=== PATIENT | female | born 1955 | race Caucasian/White ===

== ENCOUNTER 2016-07-26 16:27 | Emergency (ER) | payer MEDICARE, MEDICAID ==
[2016-07-26] MEDS ORDERED: Ondansetron ODT TAB* 4 MG PO ONE ×2 (18:18→19:27)
[2016-07-26 19:48] VITALS: BP 173/75
[2016-07-27 12:51] LABS: Urine Bacteria Absent (Absent); Urine Bilirubin Negative (Negative); Urine Glucose Negative (Negative); Urine Nitrite Negative (Negative)
--- NOTE | 2016-07-27 20:00 | UC ---
Blu Matta Aidan, scribed for Sade Abad MD on 07/26/16 at 1840 . FLU HPI - HPI Summary HPI Summary: 61 y/o female presents to the Urgent Care with a complaint of acute, constant, moderate, influenza-like symptoms that began yesterday afternoon. Associated symptoms include decreased oral intake, frequent episodes of diarrhea, chills, abdominal tenderness, a mild cough, diffuse body aches, nasal congestion, and a bloody nose last night. Pt denies any vomiting or sore throat. She is a Type II diabetic on insulin who last had a dose at 1900 yesterday. She takes 1 dose per day. The last time she ate was noon today. 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 Negative: Negative - diffuse body aches, chills, abdominal tenderness, decreased oral intake, nasal congestion, bloody nose last night Related Hx: Smoking - former - Risk Factors Influenza Risk Factors: Chronic Medical or Immunosuppresive Condition - DM - Allergy/Home Medications Allergies/Adverse Reactions: Allergies Allergy/AdvReac Type Severity Reaction Status Date / Time Aspirin Allergy Mild Hives Verified 07/26/16 16:59 Cephalexin [From Keflex] Allergy Mild Hives Verified 07/26/16 16:59 Ibuprofen [From Motrin] Allergy Mild Hives Verified 07/26/16 16:59 Naproxen [From Aleve] Allergy Mild Hives Verified 07/26/16 16:59 Pregabalin [From Lyrica] Allergy Mild Hives - Verified 07/26/16 16:59 100 MG ONLY, CAN AND DO TAKE 50 MG Amoxicillin [From Augmentin] Allergy Hives Verified 07/26/16 16:59 Clavulanic Acid Allergy Hives Verified 07/26/16 16:59 [From Augmentin] Erythromycin Allergy SOB , HIVES Verified 07/26/16 16:59 Nitrofurantoin Allergy Unknown Verified 07/26/16 16:59 [From Macrodantin] Reaction Details Sulfa Drugs Allergy Hives Verified 07/26/16 16:59 Triamcinolone [From Nasacort] Allergy Unknown Verified 07/26/16 16:59 Reaction Details CARROTS, CELERY, APPLES Allergy Mild Hives Uncoded 07/26/16 16:59 DIET SWEETNERS Allergy TONGUE Uncoded 07/26/16 16:59 NUMB, HEADACHE PMH/Surg Hx/FS Hx/Imm Hx Endocrine History Of: Reports: Diabetes, Dyslipidemia Cardiovascular History Of: Reports: Hypertension Respiratory History Of: Reports: COPD, Asthma GI/ History Of: Reports: Gastroesophageal Reflux Neurological History Of: Reports: Migraine - 3 X A WEEK Psychological History Of: Reports: Anxiety - HX, Depression - HX Cancer History Of: Denies: Lung Cancer, Colorectal Cancer, Breast Cancer, Prostate Cancer, Cervical Cancer Other History Of: Negative For: HIV, Hepatitis B, Hepatitis C - Surgical History Surgical History: Yes Surgery Procedure, Year, and Place: BILATERAL TUBAL LIGATION,. CHOLECYSTECTOMY. APPENDECTOMY. BACK SURGURY X 6 (with implant), [facility]. LEFT HIP IMPLANT. RIGHT HAND CYSTECTOMY. HYSTERECTOMY, [facility] - Family History Known Family History: Positive: Cardiac Disease, Hypertension, Diabetes, Other - charcot tracey tooth - Social History Occupation: Disabled Lives: Alone Alcohol Use: None Substance Use Type: None, Prescribed Smoking Status (MU): Former Smoker Type: Cigarettes Amount Used/How Often: 1 1/2 PPD Length of Time of Smoking/Using Tobacco: 5 Years When Did the Patient Quit Smoking/Using Tobacco: 2010 Household Exposure Type: Cigarettes - Immunization History Most Recent Influenza Vaccination: 2013 Review of Systems Constitutional: Chills, Fatigue, Other - decreased oral intake Skin: Negative Eyes: Negative ENT: Epistaxis - 1x last night, resolved spontaneously, Other - nasal congestion Respiratory: Cough Cardiovascular: Negative Gastrointestinal: Abdominal Pain, Diarrhea Genitourinary: Negative Motor: Negative Neurovascular: Negative Musculoskeletal: Arthralgia - diffuse body aches Neurological: Negative Psychological: Negative All Other Systems Reviewed And Are Negative: Yes Physical Exam Triage Information Reviewed: Yes Appearance: Well-Appearing, Well-Nourished, Pain Distress Vital Signs: Initial Vital Signs Temp 98.0 F 07/26/16 16:56 Pulse 96 07/26/16 16:56 Resp 20 07/26/16 16:56 BP 188/96 07/26/16 16:56 Pulse Ox 98 07/26/16 16:56 Vital Signs Reviewed: Yes Eyes: Positive: Conjunctiva Clear ENT: Positive: Pharynx normal, TMs normal. Negative: Hearing grossly normal Neck: Positive: Supple, Nontender, No Lymphadenopathy Respiratory: Positive: Lungs clear, Normal breath sounds, No respiratory distress Cardiovascular: Positive: RRR, No Murmur, Pulses Normal, Brisk Capillary Refill Abdomen Description: Positive: No Organomegaly, Soft. Negative: Nontender - mild diffuse tenderness, CVA Tenderness (R), CVA Tenderness (L), Distended, Guarding, Hepatomegaly, McBurney's Point Tenderness, Peritoneal Signs, Pulsatile Mass, Splenomegaly Bowel Sounds: Positive: Hypoactive Musculoskeletal: Positive: Strength Intact, ROM Intact Neurological: Positive: Alert, Muscle Tone Normal Psychological Exam: Normal Skin Exam: Other - ecchymoses on abdomen from sites of insulin injections Re-Evaluation - Re-Evaluation First Eval Re-Evaluation Time: 19:23 - after zofran, pt retentive of juice and crackers , feels better Change: Improved Flu Course/Dx - Course Course Of Treatment: glu 107 UA 75 wbcs, +protein; influenza A and B neg. Await urine culture - Differential Dx/Diagnosis Differential Diagnosis/HQI/PQRI: Influenza, Pneumonia, Other - gastroenteritis, Dm in poor control, UTI Provider Diagnoses: Gastroenteritis Discharge - Discharge Plan Condition: Stable Disposition: HOME Prescriptions: Ondansetron ODT TAB* [Zofran Odt TAB*] 4 mg PO Q8H PRN #10 tab.odt PRN Reason: Nausea Patient Education Materials: Gastroenteritis (ED) Referrals: Desean Moreno MD [Primary Care Provider] - Additional Instructions: We have dispensed one zofran 4mg ODT that you may take at 0430am if you are still having stomach upset. Go to the emergency room if you have any new or worsening symptoms. The documentation as recorded by the Blu thomason Aidan accurately reflects the service I personally performed and the decisions made by , Sade Abad MD.
== END 2016-07-26 19:46 | disposition home or self-care (01) ==
LOC: UCEAST 16:27
DX: K52.9 Noninfective gastroenteritis and colitis, unspecified (principal); R10.819 Abdominal tenderness, unspecified site; Z88.6 Allergy status to analgesic agent; Z88.1 Allergy status to other antibiotic agents; Z88.0 Allergy status to penicillin; Z88.2 Allergy status to sulfonamides; Z88.8 Allergy status to other drugs, medicaments and biological substances; E11.9 Type 2 diabetes mellitus without complications; Z79.4 Long term (current) use of insulin; Z90.49 Acquired absence of other specified parts of digestive tract; Z87.891 Personal history of nicotine dependence
CPT/HCPCS: 81002; 81003; 81015; 87077; 87086; 87502; 99213; A9270-GY; G0463

== ENCOUNTER 2017-01-11 13:14 | Emergency (ER) | payer MEDICARE, MEDICAID ==
--- NOTE | 2017-01-11 14:36 | UC ---
Shoulder Pain HPI - HPI Summary HPI Summary: 61 y/o female w/ PMHX HTN, DM type II, dyslipidemia and multiple back surgeries and hip replacement on pain medications presents to the urgent care c/o LF shoulder pain for the past week after flipping a mattress. Pt states her pain is 6/10m, specially w/ movement. She has been taking her pain medications. Pt states denies fever, SOB, chest pain, abdominal pain, N/V/D. Pt has not other complains - History of Current Complaint Chief Complaint: UCUpperExtremity Stated Complaint: SHOULDER PAIN Time Seen by Provider: 01/11/17 14:16 Hx Obtained From: Patient Hx Last Menstrual Period: NA ?: No Onset/Duration: Gradual Onset, Lasting Days, Still Present Timing: Constant Severity Initially: Moderate Severity Currently: Moderate Location Of Pain: Is Discrete @ - LF shoulder Pain Intensity: 6 Pain Scale Used: 0-10 Numeric Character: Sharp Aggravating Factor(s): Movement, Lifting Alleviating Factor(s): Rest Associated Signs And Symptoms: Positive: Negative. Negative: Swelling, Redness , Fever, Weakness, Numbness/Tingling - Risk Factors Non-Orthopedic Risk Factor: Negative DVT Risk Factors: Negative Septic Arthritis Risk Factor: Negative - Allergies/Home Medications Allergies/Adverse Reactions: Allergies Allergy/AdvReac Type Severity Reaction Status Date / Time Aspirin Allergy Mild Hives Verified 07/26/16 16:59 Cephalexin [From Keflex] Allergy Mild Hives Verified 07/26/16 16:59 Ibuprofen [From Motrin] Allergy Mild Hives Verified 07/26/16 16:59 Naproxen [From Aleve] Allergy Mild Hives Verified 07/26/16 16:59 Pregabalin [From Lyrica] Allergy Mild Hives - Verified 07/26/16 16:59 100 MG ONLY, CAN AND DO TAKE 50 MG Amoxicillin [From Augmentin] Allergy Hives Verified 01/11/17 13:23 Clavulanic Acid Allergy Hives Verified 07/26/16 16:59 [From Augmentin] Erythromycin Allergy SOB , HIVES Verified 07/26/16 16:59 Nitrofurantoin Allergy Unknown Verified 07/26/16 16:59 [From Macrodantin] Reaction Details Sulfa Drugs Allergy Hives Verified 07/26/16 16:59 Triamcinolone [From Nasacort] Allergy Unknown Verified 07/26/16 16:59 Reaction Details CARROTS, CELERY, APPLES Allergy Mild Hives Uncoded 07/26/16 16:59 DIET SWEETNERS Allergy TONGUE Uncoded 07/26/16 16:59 NUMB, HEADACHE PMH/Surg Hx/FS Hx/Imm Hx Previously Healthy: Yes Endocrine History: Diabetes, Dyslipidemia Cardiovascular History: Hypertension Other GI/ History: constipation Other History Of: Negative For: HIV, Hepatitis B, Hepatitis C - Surgical History Surgical History: Yes Surgery Procedure, Year, and Place: BILATERAL TUBAL LIGATION,. CHOLECYSTECTOMY. APPENDECTOMY. BACK SURGURY X 6 (with implant), [place]. LEFT HIP IMPLANT. RIGHT HAND CYSTECTOMY. HYSTERECTOMY, [facility] - Family History Known Family History: Positive: Cardiac Disease, Hypertension, Diabetes, Other - charcot tracey tooth - Social History Occupation: Disabled Lives: With Family Alcohol Use: None Substance Use Type: None, Prescribed Smoking Status (MU): Former Smoker Type: Cigarettes Amount Used/How Often: 1 1/2 PPD Length of Time of Smoking/Using Tobacco: 5 Years When Did the Patient Quit Smoking/Using Tobacco: 2010 Household Exposure Type: Cigarettes - Immunization History Most Recent Influenza Vaccination: 2013 Review of Systems Constitutional: Negative Skin: Negative Eyes: Negative ENT: Negative Respiratory: Negative Cardiovascular: Negative Gastrointestinal: Negative Genitourinary: Negative Motor: Negative Neurovascular: Negative Musculoskeletal: Other: - LF shoulder pain Neurological: Negative Psychological: Negative All Other Systems Reviewed And Are Negative: Yes Physical Exam Triage Information Reviewed: Yes Appearance: Well-Appearing, No Pain Distress, Well-Nourished, Obese - morbidly obese Vital Signs: Initial Vital Signs Temp 97.6 F 01/11/17 13:20 Pulse 83 01/11/17 13:20 Resp 16 01/11/17 13:20 BP 154/83 01/11/17 13:20 Pulse Ox 97 01/11/17 13:20 Vital Signs Reviewed: Yes Eye Exam: Normal Eyes: Positive: Conjunctiva Clear - PERRLA, EOMI, fundi grossly normal ENT Exam: Normal ENT: Positive: Normal ENT inspection, Hearing grossly normal, Pharynx normal, TMs normal, Other: - B/L earphones Dental Exam: Normal Neck exam: Normal Neck: Positive: Supple, Nontender, No Lymphadenopathy Respiratory Exam: Normal Respiratory: Positive: Chest non-tender, Lungs clear, Normal breath sounds Cardiovascular Exam: Normal Cardiovascular: Positive: RRR, No Murmur, Pulses Normal Abdominal Exam: Normal Abdomen Description: Positive: Nontender, No Organomegaly, Soft. Negative: CVA Tenderness (R), CVA Tenderness (L) Bowel Sounds: Positive: Present Musculoskeletal: Positive: Strength Intact, No Edema, ROM Limited @ - LF shoulder w/ limited ROM due to pain, point tenderness at the acromoclavicular joint w/o swelling or erythema. Positive sensation and capillary refill of the LF upper extremity, positive reflexes and pulses. Neurological Exam: Normal Psychological Exam: Normal Skin Exam: Normal Shoulder Course/Dx - Course Course Of Treatment: 61 y/o female w/ PMHX HTN, DM type II, dyslipidemia and multiple back surgeries and hip replacement on pain medications presents to the urgent care c/o LF shoulder pain for the past week after flipping a mattress. Pt states her pain is 6/10m, specially w/ movement. She has been taking her pain medications. Pt states denies fever, SOB, chest pain, abdominal pain, N/V/ D.HX obtained. LF shoulder X-ray ordered, Result: normal radiograph of LF shoulder. Pt's LF shouldr immobilized w/ a shoulder sling and advised RICE and take tylenol q4-6hrs and continue taking her pain medication. Given referral for PT. Advised if no improvement of symptoms to f/u with her PCP for further images and treatment. Pt understood and agreed. -Pt w/ PMHX of HTN and BP today elevated. Pt has taking her BP meds. Advised to decrease salt in her diet , monitor her BP and f/u with her PCP for further management. PT understood and agreed. - Differential Dx/Diagnosis Differential Diagnosis/HQI/PQRI: Bursitis, Contusion, Dislocation, Fracture ( Closed), Rotator Cuff Injury, Sprain, Strain, Tendonitis Provider Diagnoses: 1-Left shoulder pain. 2-Uncontrolled HTN Discharge - Discharge Plan Condition: Stable Disposition: HOME Patient Education Materials: Shoulder Sprain (ED), Low Sodium Diet (ED) Referrals: Desean Moreno MD [Primary Care Provider] - 1 Week Additional Instructions: 1-PLese continue taking your medication for pain, keep your shoulder immobilized , apply ice and rest. F/u with Physical Therapy for further evaluation and treatment. If symptoms do not improve please f/u with your PCP for further management. 2-Your BP is elevated today, please decrease salt in your diet and continue monitor your BP if continues to be elevated, please f/u with your PCP
--- NOTE | 2017-01-11 15:07 | RAD ---
INDICATION: Anterior left shoulder pain while flipping her mattress COMPARISON: None. TECHNIQUE: 4 views of the left shoulder were obtained. FINDINGS: The adequately corticated bones are in normal alignment. Joint spaces appear maintained. No fracture, dislocation or focal bony abnormality is seen. IMPRESSION: Normal radiograph of the left shoulder. If the patient's symptoms persist, follow-up imaging is recommended.
[2017-01-11 15:46] VITALS: BP 162/75
== END 2017-01-11 15:40 | disposition home or self-care (01) ==
LOC: UCEAST 13:14
DX: M25.512 Pain in left shoulder (principal); E11.9 Type 2 diabetes mellitus without complications; I10 Essential (primary) hypertension; E78.5 Hyperlipidemia, unspecified; Z88.6 Allergy status to analgesic agent; Z88.3 Allergy status to other anti-infective agents; Z88.2 Allergy status to sulfonamides; Z91.018 Allergy to other foods; K59.00 Constipation, unspecified; Z96.642 Presence of left artificial hip joint; Z87.891 Personal history of nicotine dependence
CPT/HCPCS: 99213; G0463

== ENCOUNTER 2017-02-07 19:42 | Emergency (ER) | payer MEDICARE, MEDICAID ==
[2017-02-07] MEDS ORDERED: DOXYcycline CAP(*) 100 MG PO ONE (20:25)
[2017-02-07 20:37] VITALS: BP 154/78
--- NOTE | 2017-02-07 20:43 | UC ---
Yair Matta Nikita, scribed for Jonathan Ackerman MD on 02/07/17 at 2028 . General HPI - HPI Summary HPI Summary: This patient is a 61 year old F presenting to [facility] with a chief complaint of ear pain and sinus congestion for two days. Pt reports she cant wear her glasses because they are too sore. The patient rates the pain 10/10 in severity. Symptoms aggravated by touching. Symptoms alleviated by nothing. Patient reports sore bilateral ears, cold a few days ago, fever, and cough. Patient denies sore throat. Pt doesnt know if her ears have any drainage. Pt reports similar episode many years ago, no surgeries with her ears, and no ear plants yet (scheduled for Apr.07). - History of Current Complaint Chief Complaint: UCEar Stated Complaint: EAR PAIN,SINUS CONGESTION Time Seen by Provider: 02/07/17 20:11 Hx Obtained From: Patient Hx Last Menstrual Period: NA Onset/Duration: Sudden Onset - 2 days, Lasting Days, Still Present Onset Severity: Severe Current Severity: Severe Pain Intensity: 10 Pain Location at: Bilateral ears and sinuses Aggravating: touching Alleviating: nothing Associated Signs & Symptoms: Positive: Other - Patient reports sore bilateral ears, cold a few days ago, fever, and cough. Patient denies sore throat. Pt doesnt know if her ears have any drainage. - Allergy/Home Medications Allergies/Adverse Reactions: Allergies Allergy/AdvReac Type Severity Reaction Status Date / Time Aspirin Allergy Mild Hives Verified 07/26/16 16:59 Cephalexin [From Keflex] Allergy Mild Hives Verified 07/26/16 16:59 Ibuprofen [From Motrin] Allergy Mild Hives Verified 07/26/16 16:59 Naproxen [From Aleve] Allergy Mild Hives Verified 07/26/16 16:59 Pregabalin [From Lyrica] Allergy Mild Hives - Verified 07/26/16 16:59 100 MG ONLY, CAN AND DO TAKE 50 MG Amoxicillin [From Augmentin] Allergy Hives Verified 01/11/17 13:23 Clavulanic Acid Allergy Hives Verified 07/26/16 16:59 [From Augmentin] Erythromycin Allergy SOB , HIVES Verified 07/26/16 16:59 Nitrofurantoin Allergy Unknown Verified 07/26/16 16:59 [From Macrodantin] Reaction Details Sulfa Drugs Allergy Hives Verified 07/26/16 16:59 Triamcinolone [From Nasacort] Allergy Unknown Verified 07/26/16 16:59 Reaction Details CARROTS, CELERY, APPLES Allergy Mild Hives Uncoded 07/26/16 16:59 DIET SWEETNERS Allergy TONGUE Uncoded 07/26/16 16:59 NUMB, HEADACHE PMH/Surg Hx/FS Hx/Imm Hx Other History Of: Negative For: HIV, Hepatitis B, Hepatitis C - Surgical History Surgical History: Yes Surgery Procedure, Year, and Place: BILATERAL TUBAL LIGATION,. CHOLECYSTECTOMY. APPENDECTOMY. BACK SURGURY X 6 (with implant), [place]. LEFT HIP IMPLANT. RIGHT HAND CYSTECTOMY. HYSTERECTOMY, [facility] - Family History Known Family History: Positive: Cardiac Disease, Hypertension, Diabetes, Other - charcot traecy tooth - Social History Alcohol Use: None Substance Use Type: None, Prescribed Smoking Status (MU): Former Smoker Type: Cigarettes Amount Used/How Often: 1 1/2 PPD Length of Time of Smoking/Using Tobacco: 5 Years When Did the Patient Quit Smoking/Using Tobacco: 2010 Household Exposure Type: Cigarettes - Immunization History Most Recent Influenza Vaccination: 2013 Review of Systems Constitutional: Fever ENT: Ear Ache - Sore bilateral ears, Other - negative: sore throat; pt is unsure of any ear drainage Respiratory: Cough, Other - Cold like symptoms All Other Systems Reviewed And Are Negative: Yes Physical Exam Triage Information Reviewed: Yes Vital Signs: Initial Vital Signs Temp 98.5 F 02/07/17 19:49 Pulse 86 02/07/17 19:49 Resp 16 02/07/17 19:49 BP 154/78 02/07/17 19:49 Pulse Ox 98 02/07/17 19:49 - Additional Comments The patient is in no acute distress. Pt is hard of hearing. HEENT: The pupils are equal and reactive. Tragel tenderness in her right ear. Erythema on her right ear canal. No mastoid tenderness. Left ear has more pronounced tragal tenderness and a more inflamed ear canal. The ear drums are normal. Both frontal and sinus are tender to percussion. Neck is supple. Respiratory: Lungs are clear. Cardiovascular: Heart is regular rate and rhythm. Course/Dx - Course Course Of Treatment: This patient is a 61 year old F presenting to [facility] with a chief complaint of ear pain and sinus congestion for two days. The patient rates the pain 10/10 in severity. Symptoms aggravated by touching. Symptoms alleviated by nothing. Patient reports sore bilateral ears, cold a few days ago , fever, and cough. Patient denies sore throat. Pt doesnt know if her ears have any drainage. Pt reports similar episode many years ago, no surgeries with her ears, and no ear plants yet (scheduled for Apr.07). Pt will be discharged with Doxycycline and Ciprodex will instructions to follow up with her PCP. Pt is agreeable with this plan. - Differential Dx - Multi-Symptom Differential Diagnoses: Other - otitis media, otitis externa, sinusitis Provider Diagnoses: Acute otitis externa bilaterally and acute sinusitis. Discharge - Discharge Plan Condition: Stable Disposition: HOME Prescriptions: Ciproflox/Dexameth OTIC.SUSP* [Ciprodex OTIC.SUSP*] 4 drop .SEE ORDER BID #1 btl DOXYcycline CAP(*) [DOXYcycline 100MG CAP(*)] 100 mg PO BID #18 cap Patient Education Materials: Otitis Externa (ED), Sinusitis (ED) Referrals: Desean Moreno MD [Primary Care Provider] - 3 Days The documentation as recorded by the Yair thomason Nikita accurately reflects the service I personally performed and the decisions made by , Jonathan Ackerman MD.
== END 2017-02-07 20:40 | disposition home or self-care (01) ==
LOC: UCEAST 19:42
DX: H60.503 Unspecified acute noninfective otitis externa, bilateral (principal); J01.90 Acute sinusitis, unspecified; Z88.6 Allergy status to analgesic agent; Z88.1 Allergy status to other antibiotic agents; Z88.2 Allergy status to sulfonamides; Z87.891 Personal history of nicotine dependence
CPT/HCPCS: 99212; A9270-GY; G0463

== ENCOUNTER 2017-05-18 09:48 | Emergency (ER) | payer MEDICARE, MEDICAID ==
[2017-05-18 10:19] VITALS: BP 164/63
--- NOTE | 2017-05-18 10:24 | UC ---
Ear Complaint HPI - HPI Summary HPI Summary: 61 y/o obese female presents to the urgent care c/o Rt ear pain for the past 4 days Tuesday05/15/2017. Pt reports she wears B/L hearing aids and sometimes she gets ear infections. Pain is 8/10 since yesterday, She has taking Ibuprofen and Morphine she has at home for her chronic back pain. Pt denies fever, dizziness, cough, URI, chest pain, N/V/D. - History of Current Complaint Chief Complaint: UCEar Stated Complaint: EAR PAIN Time Seen by Provider: 05/18/17 10:23 Hx Obtained From: Patient Hx Last Menstrual Period: NA Onset/Duration: Gradual Onset, Lasting Days - 4 days, Still Present Severity Initially: Mild Severity Currently: Moderate Pain Intensity: 8 Pain Scale Used: 0-10 Numeric Aggravating Factors: Nothing Alleviating Factors: Other (Noted In Comments) Associated Signs/Symptoms: Positive: Hearing Loss - Allergies/Home Medications Allergies/Adverse Reactions: Allergies Allergy/AdvReac Type Severity Reaction Status Date / Time Aspirin Allergy Mild Hives Verified 07/26/16 16:59 Cephalexin [From Keflex] Allergy Mild Hives Verified 07/26/16 16:59 Ibuprofen [From Motrin] Allergy Mild Hives Verified 07/26/16 16:59 Naproxen [From Aleve] Allergy Mild Hives Verified 07/26/16 16:59 Pregabalin [From Lyrica] Allergy Mild Hives - Verified 07/26/16 16:59 100 MG ONLY, CAN AND DO TAKE 50 MG Amoxicillin [From Augmentin] Allergy Hives Verified 01/11/17 13:23 Clavulanic Acid Allergy Hives Verified 07/26/16 16:59 [From Augmentin] Erythromycin Allergy SOB , HIVES Verified 07/26/16 16:59 Nitrofurantoin Allergy Unknown Verified 07/26/16 16:59 [From Macrodantin] Reaction Details Sulfa Drugs Allergy Hives Verified 07/26/16 16:59 Triamcinolone [From Nasacort] Allergy Unknown Verified 07/26/16 16:59 Reaction Details CARROTS, CELERY, APPLES Allergy Mild Hives Uncoded 07/26/16 16:59 DIET SWEETNERS Allergy TONGUE Uncoded 07/26/16 16:59 NUMB, HEADACHE PMH/Surg Hx/FS Hx/Imm Hx Previously Healthy: Yes Endocrine History: Diabetes, Dyslipidemia Cardiovascular History: Hypertension GI/ History: Gastroesophageal Reflux Other Neurological History: DDD Other History Of: Negative For: HIV, Hepatitis B, Hepatitis C - Surgical History Surgical History: Yes Surgery Procedure, Year, and Place: BILATERAL TUBAL LIGATION,. CHOLECYSTECTOMY. APPENDECTOMY. BACK SURGURY X 6 (with implant), [facility]. LEFT HIP IMPLANT. RIGHT HAND CYSTECTOMY. HYSTERECTOMY, [facility] - Family History Known Family History: Positive: Cardiac Disease, Hypertension, Diabetes Family History: charcot tracey tooth - Social History Occupation: Disabled Lives: With Family Alcohol Use: None Substance Use Type: None, Prescribed Smoking Status (MU): Former Smoker Type: Cigarettes Amount Used/How Often: 1 1/2 PPD Length of Time of Smoking/Using Tobacco: 5 Years When Did the Patient Quit Smoking/Using Tobacco: 2010 Household Exposure Type: Cigarettes - Immunization History Most Recent Influenza Vaccination: 2013 Vaccination Up to Date: Yes Review of Systems Constitutional: Negative Skin: Negative Eyes: Negative ENT: Ear Ache - RT ear pain Respiratory: Negative Cardiovascular: Negative Gastrointestinal: Negative Genitourinary: Negative Motor: Negative Neurovascular: Negative Musculoskeletal: Negative Neurological: Negative Psychological: Negative Is Patient Immunocompromised?: No All Other Systems Reviewed And Are Negative: Yes Physical Exam Triage Information Reviewed: Yes Vital Signs: Initial Vital Signs Temp 97.1 F 05/18/17 10:14 Pulse 89 05/18/17 10:14 Resp 18 05/18/17 10:14 BP 164/63 05/18/17 10:14 Pulse Ox 95 05/18/17 10:14 - Additional Comments Vital signs: reviewed General: Well developed, well nourished obese female patient , sitting in the examoining table w/o any apparent distress. Skin: [place], warm and dry, no evidence of atopic dermatitis, psoriasis, seborrhea. HEENT: -Head: atraumatic, non tender; no scalp dermatitis. -Eyes: sclera and conjunctiva clear, PERRLA, EOMI -Ears: no pre- or postauricular lymphadenopathy or erythema; RT external ear canal clear , no erythema Rt TM with erythema and yellowish purulent discharge, LF external ear canal clear and LF TM WNL. No fluid level, vesicles, or bullae. No perforation. -Nose/Face: erythematous and edematous nasal mucosa with clear rhinorrhea, no frontal or maxillary sinus tender to palpation. -Mouth/Throat: Mucous membrane moist, posterior pharynx clear, no erythema or exudates. Neck: supple, FROM, nontender, no lymphadenopathy, no meningismus. Chest: Clear to auscultation, normal breath sounds Abd: soft, Bowel sounds active, Nontender. Back: no spinal or CVAT Neuro: A&O x4, GCS 15, no focal neuro deficits, normal behavior for age. Ear Complaint Course/Dx - Course Course Of Treatment: 61 y/o obese female presents to the urgent care c/o Rt ear pain for the past 4 days Tuesday05/15/2017. Pt reports she wears B/L hearing aids and sometimes she gets ear infections. Pain is 8/10 since yesterday, She has taking Ibuprofen and Morphine she has at home for her chronic back pain. Pt denies fever, dizziness, cough, URI, chest pain, N/V/D. Hx obtained. Pt with acute otitis media on examination. Pt with multiple allergic reactions to different antibiotics. Pt Rx Doxicycline PO and advised to continue taken Ibuprofen PO after meals for Otalgia. Pt Advised if symptoms do not improve or worsen to return to the urgent care or f/u with PCP for further management. Pt BP is elevated today. Pt with Hx of HTN. Advised to decrease salt in her diet, monitor BP and F/u with her PCP for further management. Pt understood and agreed with D/C instructions. - Differential Dx/Diagnosis Differential Diagnosis/HQI/PQRI: Mastoiditis, Otitis Externa, Otitis Media, Perforated TM, Pharyngitis Provider Diagnoses: 1- Acute Rt otitis media. 2- Uncontrolled HTN Discharge - Discharge Plan Condition: Stable Disposition: HOME Prescriptions: DOXYcycline CAP(*) [DOXYcycline 100MG CAP(*)] 100 mg PO BID #20 cap Patient Education Materials: Otitis Media (ED), Low Sodium Diet (ED) Referrals: Desean Moreno MD [Primary Care Provider] - 3 Days Additional Instructions: 1- Please take the full course of the antibiotic to avoid resistance. 2-Please take Tylenol PO q4-6hrs prn as instructed after meals to alleviate pain and swelling. Increase fluid intake, eat well, rest and avoid strenuous exercise 3-If symptoms do not improve or worsen please return to the urgent care or f/u with your PCP for further evaluation and treatment. 4-Your BP is elevated today. please decrease salt in your diet, monitor BP and if it continues to be elevated please f/u with your PCP for further management
== END 2017-05-18 10:55 | disposition home or self-care (01) ==
LOC: UCEAST 09:48
DX: H92.01 Otalgia, right ear (principal); I10 Essential (primary) hypertension; E11.9 Type 2 diabetes mellitus without complications; Z87.891 Personal history of nicotine dependence; Z88.1 Allergy status to other antibiotic agents; Z88.2 Allergy status to sulfonamides; Z88.8 Allergy status to other drugs, medicaments and biological substances; Z88.6 Allergy status to analgesic agent; M54.9 Dorsalgia, unspecified; G89.29 Other chronic pain; Z79.1 Long term (current) use of non-steroidal anti-inflammatories (NSAID); Z79.891 Long term (current) use of opiate analgesic
CPT/HCPCS: 99212; G0463

== ENCOUNTER 2017-06-21 15:48 | Emergency (ER) | payer MEDICARE, MEDICAID ==
[2017-06-21 16:09] VITALS: BP 152/64
--- NOTE | 2017-06-21 18:12 | UC ---
Tirso Matta Stephanie, scribed for Jailene Rios MD on 06/21/17 at 1808 . Ear Complaint HPI - HPI Summary HPI Summary: The pt is a 62 y/o F presenting to with ear pain that began since 05/29/17. Pt states was seen at and given oral abx. PT states in follow-up saw her PCP and was given ear drops. Pt states her ear pain returned over the past week. PT states gets drainage which clogs her hearing aide on the right. Pt also reports body aches, sore throat, cough. Pt with COPD, uses nebs and is on oxygen at night. Pt reports no change to oxygen need. Person pt lives with is here for evaluation with similar sx. Pt states is followed by Dr. Clifton for her ear as well as a ear surgeon in [place] as she is being evaluated for a transplant. PT did not get the flu vaccine this year. The pt has had exposure to a granddaughter with strep throat. Patients medication reviewed this visit. - History of Current Complaint Chief Complaint: UCEar Stated Complaint: EAR PAIN,ST Time Seen by Provider: 06/21/17 17:23 Hx Obtained From: Patient, Family/[employer]ing [employer] Supervisor - daughter Hx Last Menstrual Period: NA Onset/Duration: Lasting Weeks - 3 Severity Initially: Mild Severity Currently: Moderate Aggravating Factors: Nothing Alleviating Factors: Nothing, Other (Noted In Comments) - no OTC meds taken - Allergies/Home Medications Allergies/Adverse Reactions: Allergies Allergy/AdvReac Type Severity Reaction Status Date / Time Sulfa Drugs Allergy Severe Hives Verified 06/21/17 16:10 Aspirin Allergy Mild Hives Verified 06/21/17 16:10 Cephalexin [From Keflex] Allergy Mild Hives Verified 06/21/17 16:10 Ibuprofen [From Motrin] Allergy Mild Hives Verified 06/21/17 16:10 Naproxen [From Aleve] Allergy Mild Hives Verified 06/21/17 16:10 Pregabalin [From Lyrica] Allergy Mild Hives - Verified 06/21/17 16:10 100 MG ONLY, CAN AND DO TAKE 50 MG Amoxicillin [From Augmentin] Allergy Hives Verified 06/21/17 16:10 Clavulanic Acid Allergy Hives Verified 06/21/17 16:10 [From Augmentin] Erythromycin Allergy SOB , HIVES Verified 06/21/17 16:10 Nitrofurantoin Allergy Unknown Verified 06/21/17 16:10 [From Macrodantin] Reaction Details Triamcinolone [From Nasacort] Allergy Unknown Verified 07/26/16 16:59 Reaction Details CARROTS, CELERY, APPLES Allergy Mild Hives Uncoded 07/26/16 16:59 DIET SWEETNERS Allergy TONGUE Uncoded 07/26/16 16:59 NUMB, HEADACHE Home Medications: Home Medications Cetirizine* [ZyrTEC 10 MG TAB*] 10 mg PO DAILY 06/21/17 [History Confirmed 06/21] Losartan Potassium 25 mg PO DAILY 06/21/17 [History Confirmed 06/21/17] oxyCODONE/Acetamin 5/325 MG* [Percocet 5/325 TAB*] 1 tab PO BID MDD 6 06/21/17 [ History Confirmed 06/21/17] PMH/Surg Hx/FS Hx/Imm Hx Previously Healthy: Yes Respiratory History: COPD Other History Of: Negative For: HIV, Hepatitis B, Hepatitis C - Surgical History Surgical History: Yes Surgery Procedure, Year, and Place: BILATERAL TUBAL LIGATION,. CHOLECYSTECTOMY. APPENDECTOMY. BACK SURGURY X 6 (with implant), [facility]. LEFT HIP IMPLANT. RIGHT HAND CYSTECTOMY. HYSTERECTOMY, [facility] - Family History Known Family History: Positive: Cardiac Disease, Hypertension, Diabetes, Other - charcot tracey tooth Family History: charcot tracey tooth - Social History Occupation: Unemployed Lives: With Family Alcohol Use: None Substance Use Type: None, Prescribed Smoking Status (MU): Former Smoker Type: Cigarettes Amount Used/How Often: 1 1/2 PPD Length of Time of Smoking/Using Tobacco: 5 Years When Did the Patient Quit Smoking/Using Tobacco: 2010 Household Exposure Type: Cigarettes - Immunization History Most Recent Influenza Vaccination: 2013 Vaccination Up to Date: Yes Review of Systems Constitutional: Chills, Other - body aches, decreased oral intake ENT: Sore Throat, Ear Ache, Other - R ear pain that radiates to the neck Gastrointestinal: Abdominal Pain All Other Systems Reviewed And Are Negative: Yes Physical Exam Triage Information Reviewed: Yes Appearance: Well-Appearing, No Pain Distress, Well-Nourished Vital Signs: Initial Vital Signs Temp 98.3 F 06/21/17 16:00 Pulse 95 06/21/17 16:00 Resp 18 06/21/17 16:00 BP 152/64 06/21/17 16:00 Pulse Ox 94 06/21/17 16:00 Vital Signs Reviewed: Yes Eye Exam: Normal Eyes: Positive: Conjunctiva Clear ENT: Positive: Other - left TM - wnl right TM - yellow discharge along canal - unable to visualize TM no mastoid pain. No inflammation to pinna, auricle turbinates inflammed and boggy pt does not have teeth. No inflammation or dicomfort of gums + PND no exudate No erythema uvula midline Dental Exam: Normal Neck exam: Normal Neck: Positive: Supple, Nontender, No Lymphadenopathy Respiratory Exam: Normal Respiratory: Positive: Chest non-tender, Lungs clear, Normal breath sounds, No respiratory distress, No accessory muscle use, Respiratory distress, Other: - + BS throughout no w/r No increased WOB No retractions No cough Cardiovascular Exam: Normal Cardiovascular: Positive: RRR, No Murmur, Pulses Normal Abdominal Exam: Normal Abdomen Description: Positive: Nontender, No Organomegaly, Soft Bowel Sounds: Positive: Present Musculoskeletal Exam: Normal Musculoskeletal: Positive: Strength Intact Neurological Exam: Normal Neurological: Positive: Alert Psychological Exam: Normal Psychological: Positive: Normal Response To Family Skin Exam: Normal Re-Evaluation - Re-Evaluation First Eval Re-Evaluation Time: 19:22 Change: Unchanged Comment: pt with + influenza. neg strep. Will start tamiflu. cipro drops - Dr. velásquez. return precautions. pt has mdi. hydrate. APAP Ear Complaint Course/Dx - Course Course Of Treatment: Pt presents with recurrent right ear pain s/p treatment for infection in May. Pt also with body aches, sore throat, congestion, cough. PT with otitis externa on exam - will start topical drops and refer to Dr. Clifton (exisiting provider). Pt with sore throat and body aches + strep exposure. Will check flu and strep and reassess - Differential Dx/Diagnosis Provider Diagnoses: otitis externa right ear. influenza Discharge - Discharge Plan Condition: Stable Disposition: HOME Prescriptions: Ciproflox/Dexameth OTIC.SUSP* [Ciprodex OTIC.SUSP*] 1 drop .SEE ORDER BID #1 btl Oseltamivir CAP* [Tamiflu CAP*] 75 mg PO BID #10 cap Patient Education Materials: Otitis Externa (ED), Influenza (ED) Referrals: Desean Moreno MD [Primary Care Provider] - Additional Instructions: - Stay well hydrated. Drink plenty of non-alcoholic,non-caffinated beverages - Take tamiflu as prescribed until gone -- use your nebulizer every 4 hours -These infections are spread by secretions - do NOT share eating or drinking utensils - clean items you share with other people such as cell phones, computer mouse, TV remote, computer tablets, etc - call your doctor tomorrow for a recheck this week. If you develop shortness of breath, uncontrolled fevers, or any other concerns call 911 and go to the hospital for your ear: - apply antibiotics drops as prescribed - contact Dr. Clifton for a re-evaluation this week The documentation as recorded by the Tirso thomason Stephanie accurately reflects the service I personally performed and the decisions made by me, Jailene Rios MD.
== END 2017-06-21 20:05 | disposition home or self-care (01) ==
LOC: UCEAST 15:48
DX: H60.91 Unspecified otitis externa, right ear (principal); J11.1 Influenza due to unidentified influenza virus with other respiratory manifestations; J44.9 Chronic obstructive pulmonary disease, unspecified; Z90.49 Acquired absence of other specified parts of digestive tract; Z90.710 Acquired absence of both cervix and uterus; Z90.89 Acquired absence of other organs; Z88.6 Allergy status to analgesic agent; Z88.1 Allergy status to other antibiotic agents; Z88.2 Allergy status to sulfonamides; Z88.8 Allergy status to other drugs, medicaments and biological substances; Z87.891 Personal history of nicotine dependence
CPT/HCPCS: 87502; 87651; 99201; G0463

== ENCOUNTER 2017-07-16 13:22 | Emergency (ER) | payer MEDICAID, MEDICARE, OTHER ==
[2017-07-16 15:38] VITALS: BP 160/84
[2017-07-16] MEDS ORDERED: Acetaminophen TAB* 325 MG PO ONE (16:32)
[2017-07-16] MEDS ORDERED: Docusate LIQ* 100 MG/10 ML UDC PO ONE (16:53)
[2017-07-16] MEDS ORDERED: Ciprofloxacin 0.3% OPTH.SOL* 2.5 ML BTL ONE (17:43)
--- NOTE | 2017-08-05 17:21 | UC ---
Ear Complaint HPI - HPI Summary HPI Summary: Patient has pain in her left ear blood oozing from her left ear hurts to wear her hearing aid feels like there is something in her left canal - History of Current Complaint Chief Complaint: UCEar Stated Complaint: EAR ACHE Time Seen by Provider: 07/16/17 16:27 Hx Obtained From: Patient Hx Last Menstrual Period: NA ?: No Onset/Duration: Sudden Onset Severity Initially: Moderate Severity Currently: Moderate Pain Intensity: 5 Pain Scale Used: Adult Non Verbal Associated Signs/Symptoms: Positive: Discharge - Allergies/Home Medications Allergies/Adverse Reactions: Allergies Allergy/AdvReac Type Severity Reaction Status Date / Time nitrofurantoin Allergy Unknown Unknown Verified 08/03/17 11:11 [From Macrodantin] Reaction Details amoxicillin Allergy Hives Verified 08/03/17 11:11 aspirin Allergy Hives Verified 08/03/17 11:11 cephalexin Allergy Hives Verified 08/03/17 11:11 clavulanic acid Allergy Hives Verified 08/03/17 11:11 [From Augmentin] erythromycin base Allergy SOB, HIVES Verified 08/03/17 11:11 ibuprofen Allergy Hives Verified 08/03/17 11:11 pregabalin [From Lyrica] Allergy Hives Verified 08/03/17 11:11 Sulfa (Sulfonamide Allergy Hives Verified 08/03/17 11:11 Antibiotics) triamcinolone Allergy Unknown Verified 08/03/17 11:11 Reaction Details CARROTS, CELERY, APPLES Allergy Mild Hives Uncoded 08/03/17 11:11 DIET SWEETNERS Allergy TONGUE Uncoded 08/03/17 11:11 NUMB, HEADACHE PMH/Surg Hx/FS Hx/Imm Hx Previously Healthy: No Endocrine History: Diabetes, Dyslipidemia Cardiovascular History: Cardiac Disease, Hypertension GI/ History: Gastroesophageal Reflux Other History Of: Negative For: HIV, Hepatitis B, Hepatitis C - Surgical History Surgical History: Yes Surgery Procedure, Year, and Place: BILATERAL TUBAL LIGATION,. CHOLECYSTECTOMY. APPENDECTOMY. BACK SURGURY X 6 (with implant), [facility]. LEFT HIP IMPLANT. RIGHT HAND CYSTECTOMY. HYSTERECTOMY, [facility] - Family History Known Family History: Positive: Cardiac Disease, Hypertension, Diabetes, Other - charcot tracey tooth Family History: charcot tracey tooth - Social History Occupation: Disabled Lives: With Family Alcohol Use: None Substance Use Type: None, Prescribed Smoking Status (MU): Former Smoker Type: Cigarettes Amount Used/How Often: 1 1/2 PPD Length of Time of Smoking/Using Tobacco: 5 Years When Did the Patient Quit Smoking/Using Tobacco: 2010 Household Exposure Type: Cigarettes - Immunization History Most Recent Influenza Vaccination: 2013 Vaccination Up to Date: Yes Review of Systems Constitutional: Negative Skin: Negative Eyes: Negative ENT: Ear Ache - irratation in side left ear canal Respiratory: Negative Cardiovascular: Negative Gastrointestinal: Negative Genitourinary: Negative Motor: Negative Neurovascular: Negative Musculoskeletal: Negative Neurological: Negative Psychological: Negative Is Patient Immunocompromised?: No All Other Systems Reviewed And Are Negative: Yes Physical Exam Triage Information Reviewed: Yes Appearance: No Pain Distress, Ill-Appearing - chronic illness, Obese Vital Signs: Initial Vital Signs Temp 98 F 07/16/17 15:31 Pulse 85 07/16/17 15:31 Resp 18 07/16/17 15:31 BP 160/84 07/16/17 15:31 Pulse Ox 96 07/16/17 15:31 Vital Signs Reviewed: Yes Eye Exam: Normal Eyes: Positive: Conjunctiva Clear ENT Exam: Normal ENT: Positive: Normal ENT inspection, Hearing grossly normal, TMs normal, Other - small lesion inside left ear canal. Negative: Nasal congestion, Nasal drainage, Trismus, Muffled voice, Hoarse voice, Dental tenderness Dental Exam: Normal Neck exam: Normal Neck: Positive: Supple, Nontender Respiratory Exam: Normal Respiratory: Positive: Chest non-tender, No respiratory distress, No accessory muscle use Cardiovascular Exam: Normal Cardiovascular: Positive: RRR, Pulses Normal, Brisk Capillary Refill Musculoskeletal Exam: Normal Musculoskeletal: Positive: Strength Intact, ROM Intact, No Edema Neurological Exam: Normal Neurological: Positive: Alert, Muscle Tone Normal Psychological Exam: Normal Skin Exam: Normal Ear Complaint Course/Dx - Course Course Of Treatment: Ciprodex eardrops 4 drops twice a day left ear avoid a hearing aid use no Q-tips follow with PCP - Differential Dx/Diagnosis Provider Diagnoses: Left otitis externa, hypertension with poorly controlled with a history of hypertension Discharge - Discharge Plan Condition: Stable Disposition: HOME Prescriptions: Ciproflox/Dexameth OTIC.SUSP* [Ciprodex OTIC.SUSP*] 4 drop .SEE ORDER BID #1 [id number] Patient Education Materials: Otitis Externa (ED), Hypertension (ED) Referrals: Tiago Clifton MD [Medical Doctor] - 3 Days Desean Moreno MD [Primary Care Provider] - 1 Week
== END 2017-07-16 18:07 | disposition home or self-care (01) ==
LOC: UCEAST 13:22
DX: H60.92 Unspecified otitis externa, left ear (principal); I10 Essential (primary) hypertension; E11.9 Type 2 diabetes mellitus without complications; Z79.84 Long term (current) use of oral hypoglycemic drugs; E78.5 Hyperlipidemia, unspecified; I11.9 Hypertensive heart disease without heart failure; K21.9 Gastro-esophageal reflux disease without esophagitis; Z88.6 Allergy status to analgesic agent; Z88.1 Allergy status to other antibiotic agents; Z88.2 Allergy status to sulfonamides; Z87.891 Personal history of nicotine dependence
CPT/HCPCS: 99213; A9270-GY; G0463

== ENCOUNTER 2017-08-03 10:45 | Emergency (ER) | payer MEDICARE, MEDICAID ==
[2017-08-03 11:21] VITALS: BP 132/74
--- NOTE | 2017-08-03 11:22 | UC ---
Laceration HPI - HPI Summary HPI Summary: Pt presents with sore to her right toe. She tells me that she is diabetic and has trouble looking at her feet. She was at Dr. Moody's office earlier today and he noticed a sore on her right 2nd toe and told her to get it checked out. She came directly here. She is unsure when this sore started, but has been having some pain here when walking. She says her glucose this morning was 106. Denies fever, chills, or injury. - History Of Current Complaint Hx Obtained From: Patient Hx Last Menstrual Period: NA Laceration Location: Toe Severity: Mild Pain Intensity: 2 <Donovan Bains - Last Filed: 08/03/17 12:32> <Jailene Rios - Last Filed: 08/05/17 18:52> - History Of Current Complaint Chief Complaint: UCLowerExtremity Stated Complaint: FOOT PAIN Time Seen by Provider: 08/03/17 11:21 - Allergies/Home Medications Allergies/Adverse Reactions: Allergies Allergy/AdvReac Type Severity Reaction Status Date / Time nitrofurantoin Allergy Unknown Unknown Verified 08/03/17 11:11 [From Macrodantin] Reaction Details amoxicillin Allergy Hives Verified 08/03/17 11:11 aspirin Allergy Hives Verified 08/03/17 11:11 cephalexin Allergy Hives Verified 08/03/17 11:11 clavulanic acid Allergy Hives Verified 08/03/17 11:11 [From Augmentin] erythromycin base Allergy SOB, HIVES Verified 08/03/17 11:11 ibuprofen Allergy Hives Verified 08/03/17 11:11 pregabalin [From Lyrica] Allergy Hives Verified 08/03/17 11:11 Sulfa (Sulfonamide Allergy Hives Verified 08/03/17 11:11 Antibiotics) triamcinolone Allergy Unknown Verified 08/03/17 11:11 Reaction Details CARROTS, CELERY, APPLES Allergy Mild Hives Uncoded 08/03/17 11:11 DIET SWEETNERS Allergy TONGUE Uncoded 08/03/17 11:11 NUMB, HEADACHE PMH/Surg Hx/FS Hx/Imm Hx - Additional Past Medical History Additional PMH: Neuropathy Chronic back pain Endocrine History: Diabetes Cardiovascular History: Hypertension Other History Of: Negative For: HIV, Hepatitis B, Hepatitis C - Surgical History Surgical History: Yes Surgery Procedure, Year, and Place: BILATERAL TUBAL LIGATION,. CHOLECYSTECTOMY. APPENDECTOMY. BACK SURGURY X 6 (with implant), [place]. LEFT HIP IMPLANT. RIGHT HAND CYSTECTOMY. HYSTERECTOMY, [facility] - Family History Known Family History: Positive: Cardiac Disease, Hypertension, Diabetes, Other - charcot tracey tooth Family History: charcot tracey tooth - Social History Alcohol Use: None Substance Use Type: None, Prescribed Smoking Status (MU): Former Smoker Type: Cigarettes Amount Used/How Often: 1 1/2 PPD Length of Time of Smoking/Using Tobacco: 5 Years When Did the Patient Quit Smoking/Using Tobacco: 2010 Household Exposure Type: Cigarettes - Immunization History Most Recent Influenza Vaccination: 2013 Vaccination Up to Date: Yes <Donovan Bains - [place] Filed: 08/03/17 12:32> Review of Systems Constitutional: Negative Skin: Other - Sore to right 2nd toe Respiratory: Negative Cardiovascular: Negative Neurovascular: Negative Neurological: Negative Psychological: Negative All Other Systems Reviewed And Are Negative: Yes <Donovan Bains Last Filed: 08/03/17 12:32> Physical Exam Triage Information Reviewed: Yes Appearance: No Pain Distress, Obese Vital Signs: Initial Vital Signs Temp 97 F 08/03/17 11:14 Pulse 87 08/03/17 11:14 Resp 08/03/17 11:14 BP 132/74 08/03/17 11:14 Pulse Ox 96 08/03/17 11:14 Vital Signs Reviewed: Yes Neck: Positive: Supple, Nontender, No Lymphadenopathy Respiratory: Positive: Lungs clear, Normal breath sounds Cardiovascular: Positive: Pulses Normal - Right TP and DP, Brisk Capillary Refill - Right 2nd toe and right foot Musculoskeletal: Positive: Strength Intact - Right foot and 2nd toe, ROM Intact - Right foot and 2nd toe, No Edema - Right foot and 2nd toe Neurological: Positive: Alert Psychological: Positive: Age Appropriate Behavior Skin: Positive: Other - 4mm diameter grade 1C ulcer to plantar aspect of distal right 2nd toe. 2nd right toe is mildly erythematous. No drainage or bleeding. <Donovan Bains - Last Filed: 08/03/17 12:32> Vital Signs: Initial Vital Signs Temp 97 F 08/03/17 11:14 Pulse 87 08/03/17 11:14 Resp 20 08/03/17 11:14 BP 132/74 08/03/17 11:14 Pulse Ox 96 08/03/17 11:14 <Jailene Rios - Last Filed: 08/05/17 18:52> Laceration Course/Dx - Course/Dx Course Of Treatment: XR: NO ACUTE OSSEOUS INJURY. NO APPRECIABLE EROSION OR PERIOSTEAL REACTION. PLAIN FILM FINDINGS OF OSTEOMYELITIS ARE RELATIVELY LATE FINDINGS. IF THERE IS PERSISTENT CLINICAL. CONCERN FOR OSTEOMYELITIS, RECOMMEND CORRELATION WITH FOLLOWUP IMAGING, THREE-PHASE BONE SCANNING, WHITE BLOOD CELL SCAN, AND/OR MRI OF THE AFFECTED REGION. Suspect Grade 1C ulcer of right 2nd toe. I have made her an appt for her at the [facility] for 08/05/17 @ 12:30pm. The wound was dressed with triple antibiotic ointment and telfa at today's visit. I will cover her for an infectious process with Clindamycin. - Differential Dx - Laceration/Wound Provider Diagnoses: Grade 1C ulcer of right 2nd toe <Donovan Bains - Last Filed: 08/03/17 12:32> Discharge <Donovan Bains - Last Filed: 08/03/17 12:32> <Jailene Rios - Last Filed: 08/05/17 18:52> - Discharge Plan Condition: Stable Disposition: HOME Prescriptions: Clindamycin Cap(NF) [Clindamycin Cap 300 mg Cap(NF)] 300 mg PO TID #21 cap Patient Education Materials: Diabetic Foot Ulcers (ED) Referrals: Desean Moreno MD [Primary Care Provider] - As Soon As Possible Additional Instructions: If you develop a fever, shortness of breath, chest pain, new or worsening symptoms - please call your PCP or go to the ED. Your blood pressure was high at todays visit. Please see your primary provider within 4 weeks for recheck and re-evaluation. 1) Please follow up with your PCP within 1 week 2) I have scheduled you an appointment with the [facility] at [facility] for Tuesday08/05/17 at 12:30pm. Please attend this appointment for further care of your foot ulcer. Attestation Statement User Type: Provider - I was available for consult. This patient was seen by the [facility]. The patient was not presented to, seen by, or examined by me. Bebe <Jailene Rios - Last Filed: 08/05/17 18:52>
--- NOTE | 2017-08-03 12:01 | RAD ---
HISTORY: Pain, ulcer, osteomyelitis, right foot COMPARISONS: None relevant VIEWS: 3, Frontal, lateral, and oblique views of the second digit of the right foot FINDINGS: BONE DENSITY: Normal. BONES: There is no displaced fracture. There is no appreciable erosion or periosteal reaction. 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 ALIGNMENT: There is no dislocation. SOFT TISSUES: Unremarkable. OTHER FINDINGS: None. IMPRESSION: NO ACUTE OSSEOUS INJURY. NO APPRECIABLE EROSION OR PERIOSTEAL REACTION. PLAIN FILM FINDINGS OF OSTEOMYELITIS ARE RELATIVELY LATE FINDINGS. IF THERE IS PERSISTENT CLINICAL CONCERN FOR OSTEOMYELITIS, RECOMMEND CORRELATION WITH FOLLOWUP IMAGING, THREE-PHASE BONE SCANNING, WHITE BLOOD CELL SCAN, AND/OR MRI OF THE AFFECTED REGION.
== END 2017-08-03 12:40 | disposition home or self-care (01) ==
LOC: UCEAST 10:45
DX: E10.621 Type 1 diabetes mellitus with foot ulcer (principal); L97.519 Non-pressure chronic ulcer of other part of right foot with unspecified severity; M19.071 Primary osteoarthritis, right ankle and foot; Z88.1 Allergy status to other antibiotic agents; Z88.8 Allergy status to other drugs, medicaments and biological substances; Z91.018 Allergy to other foods; Z87.891 Personal history of nicotine dependence
CPT/HCPCS: 99212; G0463